=== PATIENT | male | born 1965 | race Caucasian/White ===

== ENCOUNTER → 2020-08-21 15:34 | Outpatient (CLI) | payer BC, SELFPAY ==
--- NOTE | 2020-08-21 | DI.RAD.S_ITS ---
PROCEDURE: XR FOOT LT MIN 3V INDICATIONS: LEFT AND RIGHT HAND JOINT PAIN LEFT GREATER TOE PAIN TECHNIQUE: 3 views of the foot were acquired. COMPARISON: None. FINDINGS: Bones: No fractures or dislocations. No suspicious bony lesions. Mild hallux valgus metatarsus prima varus alignment and medial bunion. Prominent posterior calcaneal enthesophyte. Soft tissues: No tibiotalar joint effusion. Achilles tendon appears normal. IMPRESSION: 1. Mild hallux valgus alignment and medial bunion. 2. Prominent posterior calcaneal enthesophyte. Dictated by: Jose Castaneda [facility] Interpreted: Vance Rubin MD on 08/21/2020 at 16:24 Approved by: Vance Rubin M.D. on 08/27/2020 at 13:14
--- NOTE | 2020-08-21 | DI.RAD.S_ITS ---
PROCEDURE: XR HAND LT MIN 3V INDICATIONS: LEFT AND RIGHT HAND JOINT PAIN LEFT GREATER TOE TECHNIQUE: 3 views of the hand(s) acquired. COMPARISON: None. FINDINGS: Bones: No acute fracture. Alignment: Mild radial curvature of the little finger. Other: Marginal lucency present in the middle finger PIP joint, as well as the distal pole the scaphoid and distal aspect of the ulna. 1st CMC and triscaphe joint degeneration. IMPRESSION: Osteoarthritis as above. Nonspecific lucencies involving the scaphoid distal ulna and 3rd MCP joint raising the possibility of erosions, versus cysts. Dictated by: Omi Juarez M.D. on 08/21/2020 at 16:19 Approved by: Omi Juarez M.D. on 08/21/2020 at 16:22
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
== END ==
PROVIDERS: Referring Provider Nurse Practitioner Family; Visit Provider Nurse Practitioner Family
DX: M79.675 Pain in left toe(s) (principal); M20.12 Hallux valgus (acquired), left foot; M21.612 Bunion of left foot; M77.32 Calcaneal spur, left foot; M25.541 Pain in joints of right hand; M25.542 Pain in joints of left hand; M19.032 Primary osteoarthritis, left wrist; M19.031 Primary osteoarthritis, right wrist; M18.12 Unilateral primary osteoarthritis of first carpometacarpal joint, left hand
CPT/HCPCS: 73130; 73630

== ENCOUNTER 2020-11-14 15:58 | Emergency (ER) | payer BC, SELFPAY ==
[2020-11-14 16:02] VITALS: BP 173/86; PULSE 82; RESP 18; O2SAT 98; BMI 29.8
--- NOTE | 2020-11-14 16:29 | DI.RAD.S_ITS ---
PROCEDURE: XR ELBOW LT MIN 3V INDICATIONS: pain and swelling TECHNIQUE: 3 views of the elbow were acquired. COMPARISON: None. FINDINGS: Bones: No fractures or dislocations. No suspicious bony lesions. Soft tissues: No elbow joint effusion. No suspicious soft tissue calcifications. IMPRESSION: Unremarkable left elbow radiographs Dictated by: Israel Archer M.D. on 11/14/2020 at 16:31 Approved by: Israel Archer M.D. on 11/14/2020 at 16:35
--- NOTE | 2020-11-14 17:12 | ED_ITS ---
HPI - Extremity Problem General Chief complaint: Extremity Problem,Nontraumatic Stated complaint: left elbow swollen Time Seen by Provider: 11/14/20 16:38 Mode of arrival: Ambulatory Limitations: no limitations History of Present Illness HPI Narrative: Patient is a 55-year-old male here for evaluation of left elbow pain and swelling. He has had issues with tendinitis in the past specifically in his right upper extremity but has also had his left upper extremity. 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 This morning he did lift his father. Afterwards he noticed some swelling to the outside of his left elbow that is warm to the touch in has discomfort. Related Data Previous Rx's Medication Instructions Recorded cephalexin 500 mg capsule 500 mg PO QID 5 Days #20 cap 11/14/20 Allergies Allergy/AdvReac Type Severity Reaction Status Date / Time No Known Drug Allergies Allergy Verified 11/14/20 16:07 Review of Systems Constitutional Constitutional: Reports system reviewed and no additional complaints, except as documented Musculoskeletal Musculoskeletal: Reports as per HPI and Denies tingling Integumentary/Breasts Skin/Breast: Denies rash Neurologic Neurologic: Denies tingling Hematologic/Lymphatic On Anticoagulants: No Patient History Medical History Elbow tendonitis Social History Smoking Status: Never smoker Smoking Status: Never smoker tobacco type: smokeless tobacco Substance Use Type: does not use Exam Initial Vital Signs Initial Vital Signs: Vital Signs Pulse Rate 82 11/14/20 16:02 Respiratory Rate 18 11/14/20 16:02 Blood Pressure 173/86 H 11/14/20 16:02 Pulse Oximetry 98 11/14/20 16:02 Const General: cooperative and healthy appearing HENTX Head: normal to inspection and normocephalic Cardio Pulses: radial pulses present on the left Skin General: no rashes or lesions noted Neuro General: patient alert, patient awake, patient oriented x3 and moves all extremities Extrem Other: Left shoulder is unremarkable, left wrist is unremarkable, left hands unremarkable, he has does report tenderness to the lateral epicondyle and also the medial epicondyle. He also has swelling just medial to the olecranon that is warm to the touch without any overlying erythema. Course Orders Ordered: ED Orders 11/14/20 16:29 XR elbow LT min 3V Stat Vital Signs Vital signs: Vital Signs - 8 hr 11/14/20 16:02 11/14/20 17:21 Pulse Rate 82 78 Respiratory Rate 18 Blood Pressure 173/86 H 140/63 Pulse Oximetry 98 100 MDM - Extremity (Nontraumatic) Imaging Data Extremity x-ray #1: Radiologist's Impression: [address] [id number] ReportSigned Patient: Max Hardy JR JMR#: [id number]: 1965Acct:[id number]/Sex: 55 / MDate of Service: 11/14/20Loc: EDAccession Number: [id number] Procedure: XR elbow LT min 3V Ordering Provider: Ruben Matamoros D.O. PROCEDURE: XR ELBOW LT MIN 3V INDICATIONS: pain and swelling TECHNIQUE: 3 views of the elbow were acquired. COMPARISON: None. FINDINGS: Bones: No fractures or dislocations. No suspicious bony lesions. Soft tissues: No elbow joint effusion. No suspicious soft tissue calcifications. IMPRESSION: Unremarkable left elbow radiographs Dictated by: Israel Archer M.D. on 11/14/2020 at 16:31 Approved by: Israel Archer M.D. on 11/14/2020 at 16:35 [facility] Narrative Medical decision making narrative: Patient does have physical exam that is most consistent with tendinitis/bursitis. It is somewhat warm over the area however there is no surrounding erythema. He is afebrile. X-ray is unremarkable. Considered a septic bursitis however I do not feel that his exam today is 100% consistent with this. The plan will be is for him to try conservative measures to include resting the area and anti-inflammatories and he denies. He was given a prescription for antibiotics that if he starts to notice some redness over the area over the next 48 hours he will start the antibiotics and will return if this continues to worsen. He expressed understanding agreement plan. Discharge Plan Departure Patient Disposition: Home Clinical Impression: Elbow tendonitis, Bursitis Instructions: DI for Tendinitis, DI for Elbow Bursitis Activity Restrictions/Additional Instructions: I recommend that you continue with anti-inflammatories also resting your elbow says much as possible using ice like we discussed. You were given a prescription for antibiotics. I would hold on this prescription for the next 48 hours if you start develop fevers or redness over the area start taking them as directed. If continues to worsen after that please return to the emergency department for further evaluation. Prescriptions: New cephalexin 500 mg capsule 500 mg PO QID 5 Days Qty: 20 RF: 0
[2020-11-14 17:21] VITALS: BP 140/63; PULSE 78; O2SAT 100
== END 2020-11-14 17:37 | disposition home or self-care (01) ==
PROVIDERS: Emergency Provider Emergency Medicine
DX: M77.8 Other enthesopathies, not elsewhere classified (principal); M70.32 Other bursitis of elbow, left elbow
CPT/HCPCS: 73080; 99283

== ENCOUNTER 2021-06-25 07:20 | Emergency (ER) | payer OTHER, BC, SELFPAY ==
[2021-06-25 07:30] VITALS: BP 180/106; PULSE 69; RESP 22; TEMP 37.1; O2SAT 96; BMI 30.3
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
[2021-06-25 09:24] VITALS: BP 149/87; PULSE 57; RESP 18; O2SAT 98
== END 2021-06-25 09:28 | disposition home or self-care (01) ==
PROVIDERS: Emergency Provider Emergency Medicine
DX: S39.012A Strain of muscle, fascia and tendon of lower back, initial encounter (principal); S29.012A Strain of muscle and tendon of back wall of thorax, initial encounter; V89.2XXA Person injured in unspecified motor-vehicle accident, traffic, initial encounter
CPT/HCPCS: 72040; 72070; 72100; 99283

== ENCOUNTER 2021-07-14 07:13 | Emergency (ER) | payer OTHER, SELFPAY ==
[2021-07-14 08:10] VITALS: BP 168/72; PULSE 72; RESP 18; TEMP 36.8; O2SAT 98; BMI 30.3
--- NOTE | 2021-07-14 08:42 | PC.NURSE ---
pt took off his shirt for assessment. his right pect is swollen and feels torn.
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
[2021-07-14 09:12] VITALS: BP 169/83; PULSE 60; RESP 18; O2SAT 95
== END 2021-07-14 09:13 | disposition home or self-care (01) ==
PROVIDERS: Emergency Provider Emergency Medicine
DX: S29.011A Strain of muscle and tendon of front wall of thorax, initial encounter (principal); X50.9XXA Other and unspecified overexertion or strenuous movements or postures, initial encounter; V89.2XXA Person injured in unspecified motor-vehicle accident, traffic, initial encounter
CPT/HCPCS: 99281

== ENCOUNTER → 2021-07-21 07:38 | Outpatient (CLI) | payer OTHER, SELFPAY ==
--- NOTE | 2021-07-21 07:39 | DI.MRI.S_ITS ---
PROCEDURE: MR SHOULDER RT WO CON INDICATIONS: Pain in right shoulder TECHNIQUE: Noncontrast oblique coronal T2 fast spin echo with fat saturation, oblique sagittal T1 spin echo and T2 fast spin echo with fat saturation, axial T1 spin echo and T2 fast spin echo with fat saturation through the shoulder. COMPARISON: None. FINDINGS: Image quality: Excellent. Rotator cuff: Tendinosis and low-grade bursal surface partial thickness tear involving distal supraspinatus at its insertion on the humeral head extending to musculotendinous junction is seen. Distal infraspinatus tendinosis is also noted. Distal subscapularis tendon is intact. No full-thickness rotator cuff tendon rupture. Sagittal images demonstrate no rotator cuff muscle atrophy. Bones and bursae: No bone marrow contusions or fractures. Mild to moderate acromioclavicular joint osteoarthritic changes are seen with downward osteophyte formation depressing the musculotendinous junction of supraspinatus. The acromion demonstrates conventional anatomy, without an os acromiale. No pathologic subacromial-subdeltoid or subcoracoid bursal fluid is present. Capsule and soft tissues: There is signal abnormality and contour irregularity involving superior anterior labrum at 12 to 1 o'clock position suggestive of superior anterior labral tear. The long head of the biceps tendinosis is seen. The rotator interval appears normal, without fibrosis. The coracohumeral ligament is normal in thickness. IMPRESSION: 1. Tendinosis and low-grade bursal surface partial-thickness tear involving distal supraspinatus extending to musculotendinous junction. Distal infraspinatus tendinosis. No full-thickness rotator cuff tendon rupture. 2. Mild to moderate acromioclavicular joint osteoarthritis. No fracture or dislocation. No significant subacromial subdeltoid bursal fluid. 3. Suggestion of superior anterior labral tear at 12 to 1 o'clock position. 4. Proximal intra-articular portion of long head of biceps tendinosis. Dictated by: Mitch Soares M.D. on 07/21/2021 at 8:55 Approved by: Mitch Soares M.D. on 07/21/2021 at 10:00
== END ==
PROVIDERS: Referring Provider Orthopaedic Surgery; Visit Provider Orthopaedic Surgery
DX: M75.111 Incomplete rotator cuff tear or rupture of right shoulder, not specified as traumatic (principal); M25.511 Pain in right shoulder
CPT/HCPCS: 73221

== ENCOUNTER → 2021-07-26 10:20 | Outpatient (CLI) | payer BC, SELFPAY ==
[2021-07-26 11:36] LABS: COVID19 -Nasal RAPID Negative (Negative)
== END ==
PROVIDERS: Visit Provider Nurse Practitioner Family
DX: Z20.822 Contact with and (suspected) exposure to COVID-19 (principal)
CPT/HCPCS: 87635; C9803

== ENCOUNTER 2021-07-28 13:14 | Day surgery (SDC) | payer OTHER, BC, SELFPAY ==
[2021-07-27 08:22] VITALS: BMI 30.9
[2021-07-28] VITALS (10 sets, daily range): BP systolic 145–168; BP diastolic 76–93; PULSE 59–81; RESP 12–15; TEMP 36.4–37.1; O2SAT 62–100; BMI 30.9
[2021-07-28] MEDS: LACTATED RINGERS 1,000 ML 42 ML IV (13:55)
--- NOTE | 2021-07-28 14:52 | PM.PREOP ---
Pre-operative Note COVID-19 COVID-19 status: Negative Result date/Date tested (Pos, Neg/Pending): 07/26/21 Interval Note History & Physical reviewed/Exam performed by Physician: Yes Changes to H&P: No
[2021-07-28] MEDS: CEFAZOLIN 2 GM/20 ML SYRINGE IV (15:48)
--- NOTE | 2021-07-28 16:02 | SUR.OPER ---
Supine on padded OR bed, head on pillow, left arm secured on padded arm boards at <90 degrees abduction, right arm free for surgery, legs uncrossed, safety belt at thigh, tape over blanket over lower legs.
[2021-07-28] MEDS: BUPIVACAINE 0.5% (PF) 30 ML, EPINEPHrine 0.15 MG INJ (16:10)
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
[2021-07-28] MEDS: HYDROMORPHONE 2 MG INJ IV (16:57)
[2021-07-28] MEDS: OXYCODONE/ACETAMINOPHEN 5/325 TABLET 1 TAB PO ×2 (17:07→17:54)
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
== END 2021-07-28 17:55 | disposition home or self-care (01) ==
PROVIDERS: Referring Provider Orthopaedic Surgery; Visit Provider Orthopaedic Surgery
PROC: (CPT 23455; principal; 2021-07-28 15:00)
DX: S29.011A Strain of muscle and tendon of front wall of thorax, initial encounter (principal); V49.40XA Driver injured in collision with unspecified motor vehicles in traffic accident, initial encounter
CPT/HCPCS: 24341; J0171; J0690; J1100; J1170; J2405; J3010

== ENCOUNTER → 2022-03-10 07:59 | Outpatient (CLI) | payer OTHER, SELFPAY ==
--- NOTE | 2022-03-10 | DI.MRI.S_ITS ---
PROCEDURE: MR KNEE LT WO CON INDICATIONS: Unspecified injury of left quadriceps muscle TECHNIQUE: Noncontrast sagittal PD fast spin echo and T2 fast spin echo with fat saturation, sagittal 3-D FLASH with fat saturation; coronal T1 spin echo and PD fast spin echo with fat saturation, and axial PD fast spin echo with fat saturation through the knee. COMPARISON: None. FINDINGS: Image quality: Excellent. Menisci: There is linear horizontal and vertically oriented high T2 signal intensity within the middle and peripheral 3rd of the posterior horn medial meniscus, demonstrating superior and inferior articular surface extension, indicating complex tearing. There is amorphous high signal intensity within the free edge of the lateral meniscal body, demonstrating superior and inferior articular surface extension, indicating radial tearing. Cruciate ligaments: The anterior and posterior cruciate ligaments appear intact. Medial structures: The medial collateral ligament appears intact. Visualized portions of the pes anserinus tendons appear normal. No abnormal bursal fluid. Lateral structures: The lateral collateral ligament, long and short heads of the biceps femoris tendon appear intact. The popliteus tendon appears normal. Iliotibial band appears normal. Anterior structures: There is moderate grade tearing of the medial aspect of the quadriceps tendon at the patellar insertion site. Patellar tendon is intact. Patellar alignment is normal. No femoral trochlear dysplasia or ventral trochlear prominence. No edema in the infrapatellar fat pad. Bones and cartilage: No bone marrow contusions or fractures. There is mild tricompartmental periarticular osteophyte formation. There is moderate cartilage loss diffusely overlying the weight-bearing aspects of the medial femoral condyle and medial tibial plateau. Articular cartilage fibrillation overlies the lateral patellar facet. Joint space: There is physiologic knee joint fluid. Trace Olivera's cyst. Normal appearing synovial plicae are incidentally noted. IMPRESSION: 1. Complex tearing of the medial meniscus. 2. Radial tearing of the free edge of the lateral meniscus. 3. Medial and patellofemoral compartment articular cartilage loss. 4. Knee joint effusion and Olivera's cyst. 5. Partial-thickness tearing of the quadriceps tendon. Dictated by: Frank Rodriguez M.D. on 03/10/2022 at 11:28 Approved by: Frank Rodriguez M.D. on 03/10/2022 at 11:30
--- NOTE | 2022-03-10 | DI.MRI.S_ITS ---
PROCEDURE: MR FEMUR LT WO CON INDICATIONS: Unspecified injury of left quadriceps muscle TECHNIQUE: Noncontrast coronal and sagittal T1 spin echo and STIR; axial T1 spin echo and T2 fast spin echo with fat saturation through the left thigh COMPARISON: None. FINDINGS: Image quality: Excellent. Imaging findings shows a full-thickness tear of the left quadriceps tendon at the musculotendinous junction with a gap of approximately 2 cm between fragments. Associated with this is a moderate size hematoma tracking along fascial planes. There is also increased signal present within the anterior thigh musculature most prominent within the patient's vastus lateralis consistent with edema and inflammation. Marrow signal visualized bones appears normal. I do not see significant degenerative change. No soft tissue mass is identified. IMPRESSION: 1. Full-thickness tear of the quadriceps tendon at the musculotendinous junction with approximately 2 cm of distraction between tendon fragments. 2. Moderate-sized hematoma present within the anterior thigh musculature tracking along fascial planes. 3. Mild to moderate increased intramuscular signal within the anterior thigh musculature most prominent in the vastus lateralis consistent with the acute injury and inflammation. Dictated by: Ruben Lloyd M.D. on 03/10/2022 at 13:34 Approved by: Ruben Lloyd M.D. on 03/10/2022 at 13:42
== END ==
PROVIDERS: Referring Provider Family Medicine; Visit Provider Family Medicine
DX: S83.232A Complex tear of medial meniscus, current injury, left knee, initial encounter (principal); S83.282A Other tear of lateral meniscus, current injury, left knee, initial encounter; S76.112A Strain of left quadriceps muscle, fascia and tendon, initial encounter; M25.462 Effusion, left knee; M71.22 Synovial cyst of popliteal space [Baker], left knee; X58.XXXA Exposure to other specified factors, initial encounter
CPT/HCPCS: 73718; 73721

== ENCOUNTER → 2022-03-16 07:44 | Outpatient (CLI) | payer OTHER, SELFPAY ==
--- NOTE | 2022-03-16 | DI.MRI.S_ITS ---
PROCEDURE: MR SHOULDER LT WO CON INDICATIONS: LEFT SHOULDER PAIN TECHNIQUE: Noncontrast oblique coronal T2 fast spin echo with fat saturation, oblique sagittal T1 spin echo and T2 fast spin echo with fat saturation, axial T1 spin echo and T2 fast spin echo with fat saturation through the shoulder. COMPARISON: [facility], MR, MR SHOULDER RT WO CON, 07/21/2021, 7:49. FINDINGS: Image quality: Excellent. Rotator cuff: Low to moderate grade articular and bursal surface partial thickness tear involving distal supraspinatus at its insertion on the humeral head is seen extending to musculotendinous junction. Distal infraspinatus tendinosis is noted. Intrasubstance partial-thickness tear involving distal subscapularis tendon is seen. No full-thickness rotator cuff tendon rupture. Sagittal images demonstrate no significant muscle atrophy. Bones and bursae: Moderate acromioclavicular joint osteoarthritic changes are seen with joint space narrowing, subchondral sclerosis and edema and downward osteophyte formation depressing the musculotendinous junction of supraspinatus. No fracture or dislocation.. Moderate amount of joint effusion and subacromial subdeltoid bursal fluid is seen. Capsule and soft tissues: Signal abnormality and contour irregularity involving superior anterior labrum at 12 to 2 o'clock position is seen suggestive of superior anterior labral tear. The long head of the biceps tendon appears thickened intra-articularly with intrasubstance T2 hyperintense signal. The rotator interval appears normal, without fibrosis. The coracohumeral ligament is normal in thickness. IMPRESSION: 1. Low to moderate grade articular and bursal surface partial thickness tear involving distal supraspinatus extending to musculotendinous junction. Distal infraspinatus tendinosis. Low-grade intrasubstance partial-thickness tear involving distal subscapularis. No full-thickness rotator cuff tendon rupture. No muscle atrophy. 2. Moderate acromioclavicular joint osteoarthritis. No fracture or dislocation. Moderate amount of joint effusion and subacromial subdeltoid bursal fluid. No gross loose bodies. 3. Suggestion of superior anterior labral tear at 12 to 2 o'clock position. 4. Proximal intra-articular portion of long head of biceps tendinosis and low-grade intrasubstance partial-thickness tear. Dictated by: Mitch Soares M.D. on 03/16/2022 at 10:30 Approved by: Mitch Soares M.D. on 03/16/2022 at 11:14
== END ==
PROVIDERS: Referring Provider Orthopaedic Surgery; Visit Provider Orthopaedic Surgery
DX: S46.012A Strain of muscle(s) and tendon(s) of the rotator cuff of left shoulder, initial encounter (principal); S46.112A Strain of muscle, fascia and tendon of long head of biceps, left arm, initial encounter; M19.012 Primary osteoarthritis, left shoulder; M25.412 Effusion, left shoulder; X58.XXXA Exposure to other specified factors, initial encounter
CPT/HCPCS: 73221

== ENCOUNTER → 2022-12-06 10:17 | Outpatient (CLI) | payer OTHER, SELFPAY ==
--- NOTE | 2022-12-06 | DI.RAD.S_ITS ---
PROCEDURE: FL SHOULDER INJECTION MR/CT LT INDICATIONS: LEFT SHOULDER PAIN COMPARISON: None. TECHNIQUE: The indications, alternatives, benefits, risks, and complications of the procedure were explained to the patient. Written informed consent was obtained and placed in the chart. The shoulder was examined fluoroscopically and a site for needle placement chosen for entry into the glenohumeral joint from an anterior approach. The skin was prepped and draped in a sterile fashion, and 1% lidocaine infiltrated from skin down to joint capsule. A spinal needle was inserted into the glenohumeral joint, and a small amount of iodinated contrast media injected to confirm intra-articular placement of the needle tip. This was followed by approximately 12 mL dilute solution of a gadolinium containing MR contrast agent. The needle was removed and a dressing was applied. The patient was given postprocedural instructions and sent to the MR suite for MR imaging. FINDINGS: A single fluoroscopic spot image demonstrates intra-articular location of injected iodinated contrast. IMPRESSION: Successful fluoroscopically guided administration of dilute Gadolinium solution into the shoulder joint for MR arthrogram. Dictated by: Mitch Soares M.D. on 12/06/2022 at 13:49 Approved by: Mitch Soares M.D. on 12/06/2022 at 13:49
--- NOTE | 2022-12-06 | DI.MRI.S_ITS ---
PROCEDURE: MR SHOULDER LT W CON INDICATIONS: LEFT SHOULDER PAIN TECHNIQUE: After the administration of 12 mL of dilute intra-articular Gadolinium contrast, oblique coronal T1 and T2 spin echo with fat saturation, oblique sagittal T1 spin echo with and without fat saturation, oblique sagittal T2 fast spin echo with fat saturation, axial T1 spin echo with fat saturation through the shoulder. COMPARISON: [facility], RF, FL SHOULDER INJECTION MR/CT LT, 12/06/2022, 10:54. [facility], MR, MR SHOULDER LT WO CON, 03/16/2022, 8:05. FINDINGS: Image quality: Excellent. Rotator cuff: Low-grade articular and bursal surface partial thickness tear involving distal supraspinatus at its insertion on the humeral head is seen extending to musculotendinous junction. Low-grade articular surface partial-thickness tear involving distal infraspinatus at its insertion on the humeral head is also noted. Distal subscapularis tendinosis and low-grade intrasubstance partial-thickness tear is seen. No full-thickness rotator cuff tendon rupture. No rotator cuff muscle atrophy on sagittal images. Bones and bursae: Likely postsurgical changes are seen in anterior aspect of humeral head. No gross marrow edema. No acute fracture or dislocation. There is also likely postsurgical widening of acromioclavicular joint. No marrow edema. No suspicious bony lesions. Capsule and soft tissues: There is contrast extension and contour irregularity involving superior anterior labrum at 12-1 o'clock positions consistent with superior anterior labral tear. The glenohumeral ligaments appear intact. The long head of the biceps tendon demonstrates normal location and morphology. The rotator interval appears normal, without fibrosis. The coracohumeral ligament is of normal thickness. No intra-articular bodies. IMPRESSION: 1. Suggestion of superior anterior labral tear at 12 to 1 o'clock position. 2. Postsurgical changes in anterior aspect of humeral head. Postsurgical widening of acromioclavicular joint. No marrow edema. No fracture or dislocation. No gross intra-articular loose bodies. 3. Low-grade articular and bursal surface partial thickness tear involving distal supraspinatus extending to musculotendinous junction. Low-grade articular surface partial-thickness tear involving distal infraspinatus. Low-grade intrasubstance partial-thickness tear involving distal subscapularis. No full-thickness rotator cuff tendon rupture. No significant rotator cuff muscle atrophy. Dictated by: Mitch Soares M.D. on 12/06/2022 at 12:53 Approved by: Mitch Soares M.D. on 12/06/2022 at 13:01
[2022-12-07] MEDS: LIDOCAINE 1% MDV 30 ML INJ (07:20)
== END ==
PROVIDERS: Referring Provider Orthopaedic Surgery; Visit Provider Orthopaedic Surgery
DX: S46.012A Strain of muscle(s) and tendon(s) of the rotator cuff of left shoulder, initial encounter (principal); X58.XXXA Exposure to other specified factors, initial encounter
CPT/HCPCS: 23350; 73222; A9270

== ENCOUNTER → 2023-07-27 10:41 | Outpatient (CLI) | payer OTHER, SELFPAY ==
--- NOTE | 2023-07-27 10:43 | DI.MRI.S_ITS ---
PROCEDURE: MR FEMUR LT WO CON INDICATIONS: Strain of left quadriceps muscle TECHNIQUE: Noncontrast coronal and sagittal T1 spin echo and STIR; axial T1 spin echo and T2 fast spin echo with fat saturation through the left thigh. COMPARISON: [facility], MR, MR FEMUR LT WO CON, 03/10/2022, 8:34. FINDINGS: Image quality: Excellent. Bones: There is no marrow edema. No fracture or dislocation. No evidence of avascular necrosis of femoral head. Mild bilateral hip joint osteoarthritic changes are seen. Mild tricompartmental osteoarthritis in left knee is also seen. No suspicious bony lesion. Soft tissues: The scanned muscles demonstrate normal overall bulk and internal signal. Mildly thickened distal quadriceps tendon at its superior patellar insertion is seen. Included portion of patellar tendon is intact. There is no soft tissue mass or drainable fluid collection. No abnormally enlarged lymph nodes are seen. No significant left knee joint effusion. IMPRESSION: 1. Mild left hip and left knee joint osteoarthritis. No marrow edema. No fracture or dislocation. No evidence of avascular necrosis. 2. There is interval repair of previously noted ruptured distal quadriceps tendon with mildly thickened tendon which may indicate tendinosis versus postsurgical changes. No recurrent rupture. No muscle signal abnormality is seen within left thigh. Dictated by: Mitch Soares M.D. on 07/27/2023 at 14:15 Approved by: Mitch Soares M.D. on 07/27/2023 at 14:20
== END ==
PROVIDERS: Referring Provider Orthopaedic Surgery Adult Reconstructive Orthopaedic Surgery; Visit Provider Orthopaedic Surgery Adult Reconstructive Orthopaedic Surgery
DX: S76.112S Strain of left quadriceps muscle, fascia and tendon, sequela (principal); M17.12 Unilateral primary osteoarthritis, left knee; M16.12 Unilateral primary osteoarthritis, left hip; X58.XXXS Exposure to other specified factors, sequela
CPT/HCPCS: 73718

== ENCOUNTER → 2023-09-15 07:03 | Outpatient (CLI) | payer BC, SELFPAY ==
--- NOTE | 2023-09-15 07:04 | DI.MRI.S_ITS ---
PROCEDURE: MR SHOULDER RT WO CON INDICATIONS: Pain in right shoulder TECHNIQUE: Noncontrast oblique coronal T2 fast spin echo with fat saturation, oblique sagittal T1 spin echo and T2 fast spin echo with fat saturation, axial T1 spin echo and T2 fast spin echo with fat saturation through the shoulder. COMPARISON: [facility], MR, MR SHOULDER LT WO CON, 03/16/2022, 8:05. FINDINGS: Image quality: Excellent. Rotator cuff: Moderate grade articular and bursal surface partial thickness tear involving distal supraspinatus at its insertion on the humeral head is seen extending to musculotendinous junction. Low-grade articular surface partial-thickness tear involving distal infraspinatus at its insertion on the humeral head is seen. Low-grade intrasubstance partial-thickness tear involving distal subscapularis is also noted. No full-thickness rotator cuff tendon rupture. Sagittal images demonstrate no significant rotator cuff muscle atrophy. Bones and bursae: No bone marrow contusions or fractures. Moderate acromioclavicular joint osteoarthritic changes are seen with joint space narrowing and downward osteophyte formation depressing the musculotendinous junction of supraspinatus. Mild to moderate glenohumeral joint osteoarthritic changes also noted. There is small amount of joint effusion and subacromial subdeltoid bursal fluid, low-grade bursitis cannot be excluded. Capsule and soft tissues: Fraying of superior anterior labrum with T2 hyperintense signal at 12 to 2 o'clock position suggestive of superior anterior labral tear. The long head of the biceps tendon appears thickened with intrasubstance T2 hyperintense signal at the level of greater tuberosity. The rotator interval appears normal, without fibrosis. The coracohumeral ligament is normal in thickness. The inferior glenohumeral ligament is mildly thickened. IMPRESSION: 1. Moderate grade articular and bursal surface partial thickness tear involving distal supraspinatus extending to musculotendinous junction. Low-grade articular surface partial-thickness tear involving distal infraspinatus. Low-grade intrasubstance partial-thickness tear involving distal subscapularis. No full-thickness rotator cuff tendon rupture. No significant rotator cuff muscle atrophy. 2. Moderate acromioclavicular joint osteoarthritis and [id number] glenohumeral joint osteoarthritis. No fracture or dislocation. Small amount of joint effusion and subacromial subdeltoid bursal fluid, low-grade bursitis cannot be excluded. No loose bodies. 3. Suggestion of superior anterior labral tear at 12 to 2 o'clock position. 4. Low-grade intrasubstance partial-thickness tear involving proximal long head of biceps tendon at the level of humeral head. 5. Mildly thickened inferior glenohumeral ligament which can be seen associated with early stages of is decent capsulitis suggest clinical correlation. Dictated by: Mitch Soares M.D. on 09/15/2023 at 8:54 Approved by: Mitch Soares M.D. on 09/15/2023 at 8:59
== END ==
LOC: MRI 07:03
PROVIDERS: Referring Provider Orthopaedic Surgery; Visit Provider Orthopaedic Surgery
DX: M75.111 Incomplete rotator cuff tear or rupture of right shoulder, not specified as traumatic (principal); S46.111A Strain of muscle, fascia and tendon of long head of biceps, right arm, initial encounter; M19.011 Primary osteoarthritis, right shoulder; M25.511 Pain in right shoulder
CPT/HCPCS: 73221

== ENCOUNTER → 2023-10-08 10:30 | Outpatient (CLI) | payer BC, SELFPAY ==
--- NOTE | 2023-10-08 | DI.CT.S_ITS ---
PROCEDURE: CT ABDOMEN PELVIS W CON INDICATIONS: Pain TECHNIQUE: After the administration of intravenous contrast, axial sections acquired from the lung bases to the pubic symphysis. Coronal and sagittal reformats were performed. For radiation dose reduction, the following was used: automated exposure control, adjustment of mA and/or kV according to patient size. COMPARISON: None. FINDINGS: Image quality: Diagnostic. Lower Chest: No suspicious pulmonary nodule or consolidation. Dependent atelectasis. No hiatal hernia. ABDOMEN: Liver: No solid mass. Multiple subcentimeter hypodensities in the left hepatic lobe are too small to characterize (2/16, 18, 19, 20). Gallbladder: No radiopaque gallstones or wall thickening. Biliary ducts: No biliary dilation. Pancreas: No ductal dilation. Spleen: Size is within normal limits. Adrenal Glands: No adrenal nodules. Kidneys and Ureters: No hydronephrosis. No solid mass. No complex renal cystic lesion which requires follow up. Stomach and Bowel: Normal colonic caliber, without significant wall thickening. Scattered colonic diverticuli, without diverticulitis, notably in the sigmoid colon. Normal appendix (2/59). Peritoneum: No abnormal intraperitoneal fluid. No free air. Ventral Wall: Diastasis recti. Umbilical hernia containing fat and a knuckle nondilated small bowel with neck measuring 2.3 cm (2/63). Abdominal Nodes: No retroperitoneal or mesenteric adenopathy by size criteria. Vessels: Aorta and inferior vena cava are normal in size. Patent portal, splenic and bilateral renal veins. PELVIS: Pelvic Organs: Unremarkable. Bladder: No bladder wall thickening, accounting for underdistention. Pelvic Nodes: No enlarged lymph nodes. Miscellaneous: No inguinal hernias are seen. Bones: No aggressive osseous abnormality. No acute fractures. Grade 1 anterolisthesis of L5 on S1 with bilateral pars defects and moderate degenerative changes. Remainder of the spine demonstrates mild multilevel degenerative changes. IMPRESSION: 1. No acute pathology in the abdomen or pelvis. Nonobstructive bowel with a few scattered colonic diverticuli without diverticulitis. 2. Diastasis recti with a small umbilical hernia containing fat and a knuckle of the nonobstructive small bowel. 3. L5-S1 bilateral pars defects with grade 1 anterolisthesis and moderate degenerative changes. Dictated by: Erin Long M.D. on 10/08/2023 at 19:59 Approved by: Erin Long M.D. on 10/08/2023 at 20:04
== END ==
LOC: CT 10:31
PROVIDERS: Referring Provider Physician Assistant Medical; Visit Provider Physician Assistant Medical
DX: M62.08 Separation of muscle (nontraumatic), other site (principal); K57.90 Diverticulosis of intestine, part unspecified, without perforation or abscess without bleeding; K42.9 Umbilical hernia without obstruction or gangrene; M43.17 Spondylolisthesis, lumbosacral region; M47.817 Spondylosis without myelopathy or radiculopathy, lumbosacral region; M47.816 Spondylosis without myelopathy or radiculopathy, lumbar region
CPT/HCPCS: 74177; Q9967

== ENCOUNTER 2023-11-08 09:48 | Day surgery (SDC) | payer BC, SELFPAY ==
[2023-10-27 15:18] VITALS: BMI 31.6
--- NOTE | 2023-11-07 08:34 | PM.PREOP ---
Pre-operative Note Interval Note History & Physical reviewed/Exam performed by Physician: Yes Changes to H&P: No
[2023-11-08 10:17] VITALS: BMI 31.6
[2023-11-08 10:25] VITALS: BP 150/83; PULSE 61; RESP 18; TEMP 36.8; O2SAT 95
[2023-11-08] MEDS: LACTATED RINGERS 1,000 ML 42 ML IV (10:44)
[2023-11-08] MEDS: ACETAMINOPHEN 325 MG TABLET 975 MG PO (10:44)
[2023-11-08] MEDS: CEFAZOLIN 2 GM/100 ML PREMIX 100 ML IV (11:13)
--- NOTE | 2023-11-08 11:27 | SUR.OPER ---
Supine on padded OR bed, head on pillow, arms secured on padded arm boards at <90 degrees abduction, legs uncrossed, safety belt at thigh, tape over blanket over lower legs.
[2023-11-08] MEDS: BUPIVACAINE 0.25% (PF) VIAL 30 ML INJ (11:36)
[2023-11-08] MEDS: BUPIVACAINE LIPOSOME 266 MG/20 ML VIAL INJ (12:00)
[2023-11-08] MEDS: BUPIVACAINE 0.25% (PF) VIAL 20 ML INJ (12:01)
[2023-11-08 12:45] VITALS: BP 125/72; PULSE 59; RESP 16; TEMP 36.1; O2SAT 96
--- NOTE | 2023-11-08 12:49 | SUR.PHASEI ---
Received to [facility] after general anesthesia. Oral airway in place. No further airway support required. Report from DEE DEE Mondragon and Dr Roman.
[2023-11-08 12:50] VITALS: BP 125/72; PULSE 60; RESP 14; O2SAT 95
--- NOTE | 2023-11-08 12:54 | SUR.PHASEI ---
1249 - Oral airway out without further assisatance. Left knee brace applied per pts preop request.
[2023-11-08 12:55] VITALS: BP 117/70; BP 128/64; PULSE 52; PULSE 53; RESP 11; RESP 12; O2SAT 95; O2SAT 97
[2023-11-08 13:00] VITALS: BP 116/54; PULSE 51; RESP 10; TEMP 36.2; O2SAT 95
[2023-11-08 13:02] VITALS: BP 126/71; PULSE 54; RESP 12; TEMP 36.2; O2SAT 95
[2023-11-08] MEDS: ONDANSETRON 4 MG/2 ML INJ IV (13:05)
[2023-11-08] MEDS: OXYCODONE IR 5 MG TABLET PO (13:05)
[2023-11-08] MEDS: hydrOXYzine 50 MG/ML INJ IM (13:05)
[2023-11-08] MEDS: METOCLOPRAMIDE 10 MG/2 ML INJ IV (13:05)
--- NOTE | 2023-11-08 16:02 | PM.OP.1 ---
Operative Date/Time/Diagnoses Date of procedure: 11/08/23 Time of procedure: 16:03 Pre-op diagnosis: umbilical hernia Post-op diagnosis: same Procedure & Clinicians Procedure: open repair of umbilical hernia Same procedure as scheduled: Yes Indications: 58M with a symptomatic bowel containing umbilical hernia Surgeon: Jeremy Avelar Customer Service Correspondence Clerk: Israel Vazquez Anesthesia Type: General Operative Notes Findings: periumbilical hernia bowel containing component of diastasis recti superior to the umbilicus Specimen(s): none sent Estimated Blood Loss (mL): 20 Procedure in detail: Patient was brought to the operating room placed supine on the table. Bilateral lower extremity compression devices were applied. They received 2 g of Ancef prior to skin incision. Prepped and draped in sterile fashion. Time-out was performed. A small midline incision was made above the umbilicus. The subcutaneous tissue was divided to expose the midline fascia. The fascia was grasped elevated and sharply opened. We identified a periumbilcal hernia extending from the umbilicus superiorly by several cm. The is notable rectus diastasis extending superiorly to the level of the xiphoid but withoutfurther midline fascial defect. A towel was then placed over the visceral content to protect it out of harms way. Hernia sac was excised. The retromuscular space was entered by incising the posterior rectus sheath approximately 1 cm from its edge. The retromuscular plane was developed using electrocautery with care to protect the neurovascular structures. The retrorectus space was developed in the same fashion on the contralateral side. The spaces were then connected superiorly and inferiorly. The posterior sheath was then closed with 1 PDS. I selected a Bard 10 cm polypropelene soft tissue mesh placed in the retro rectus space. The mesh was anchored with Tiseal such that the mesh lay under physiologic tension. The anterior sheath was then closed with a running 1. PDS without tension. Hemostasis was checked. The subcutaneous tissue was then reapproximated using Vicryl skin closed with running 4-0 Monocryl followed by the application of Dermabond. Patient emerged from anesthesia was extubated and transferred to recovery room in stable condition. Complications: none Post-operative Condition: stable Disposition: same day surgery
== END 2023-11-08 13:45 | disposition home or self-care (01) ==
PROVIDERS: PCP Physician Assistant Medical; Referring Provider Surgery; Visit Provider Surgery
PROC: (CPT 49593; principal; 2023-11-08 11:15)
DX: K42.9 Umbilical hernia without obstruction or gangrene (principal)
CPT/HCPCS: 49593; C1781; C9290; J0690; J1100; J1885; J2405; J2704; J2765; J3010; J3410; J3490

== ENCOUNTER → 2024-04-11 07:22 | Outpatient (CLI) | payer OTHER, SELFPAY ==
--- NOTE | 2024-04-11 07:23 | DI.MRI.S_ITS ---
PROCEDURE: MR KNEE LT WO CON INDICATIONS: COMPLEX TEAR OF MEDIAL MENISCUS LT KNEE TECHNIQUE: Noncontrast sagittal PD fast spin echo and T2 fast spin echo with fat saturation, sagittal 3-D FLASH with fat saturation; coronal T1 spin echo and PD fast spin echo with fat saturation, and axial PD fast spin echo with fat saturation through the knee. COMPARISON: [facility], MR, MR KNEE LT WO CON, 03/10/2022, 8:08. FINDINGS: Image quality: Excellent. Menisci: Status post posterior horn medial meniscal repair. Residual vertically oriented linear high T2 signal intensity traverses the peripheral 3rd of the posterior horn medial meniscus, demonstrating superior and inferior articular surface extension. Previously seen truncation of the lateral meniscal free edge is no longer appreciated. Cruciate ligaments: The anterior and posterior cruciate ligaments appear intact. Medial structures: The medial collateral ligament appears intact. Visualized portions of the pes anserinus tendons appear normal. No abnormal bursal fluid. Lateral structures: The lateral collateral ligament, long and short heads of the biceps femoris tendon appear intact. The popliteus tendon appears normal. Iliotibial band appears normal. Anterior structures: The quadriceps and patellar tendons appear intact. Patellar alignment is normal. No femoral trochlear dysplasia or ventral trochlear prominence. No edema in the infrapatellar fat pad. Bones and cartilage: No bone marrow contusions or fractures. Moderate articular cartilage loss overlies the weight-bearing aspects of the medial femoral condyle and medial tibial plateau. Articular cartilage fibrillation overlying the lateral patellar facet. Joint space: There is physiologic knee joint fluid. No Olivera's cyst. Normal appearing synovial plicae are incidentally noted. IMPRESSION: 1. Postsurgical sequelae. 2. Residual vertically oriented high T2 signal intensity within the posterior horn medial meniscus, which could represent persistent/recurrent tearing. MRI arthrography may be helpful for further assessment. 3. Medial and patellofemoral compartment articular cartilage loss. Dictated by: Frank Rodriguez M.D. on 04/11/2024 at 9:50 Approved by: Frank Rodriguez M.D. on 04/11/2024 at 9:54
== END ==
LOC: MRI 07:22
PROVIDERS: PCP Physician Assistant Medical; Referring Provider Orthopaedic Surgery; Visit Provider Orthopaedic Surgery
DX: S83.232A Complex tear of medial meniscus, current injury, left knee, initial encounter (principal); X58.XXXA Exposure to other specified factors, initial encounter; Z98.890 Other specified postprocedural states
CPT/HCPCS: 73721

== ENCOUNTER → 2024-06-03 11:54 | Outpatient (CLI) | payer OTHER, SELFPAY ==
--- NOTE | 2024-06-03 11:56 | DI.RAD.S_ITS ---
PROCEDURE: FL ARTHROGRAM KNEE LT INDICATIONS: TEAR COMPARISON: None. TECHNIQUE: The indications, alternatives, benefits, risks, and complications of the procedure were explained to the patient. Written informed consent was obtained and placed in the chart. The knee was examined fluoroscopically, and a site chosen for knee joint injection. The skin was prepped and draped in a sterile fashion, and 1% Lidocaine infiltrated from the skin down to the articular surface. A hypodermic needle was then introduced into the joint and iodinated contrast media was instilled to confirm the intra-articular needle tip placement. This was followed by approximately 50 mL dilute solution of a gadolinium containing MR contrast agent. The needle was removed and a bandage was applied. An Win wrap was then applied around the knee joint to keep the contrast from collecting in the suprapatellar recess. The patient experienced no complications throughout the procedure and left the fluoroscopic suite in no apparent distress. FINDINGS: Single fluoroscopic spot image demonstrates intra-articular location to injected iodinated contrast. IMPRESSION: Successful fluoroscopically guided administration of dilute Gadolinium solution into the knee joint for MR arthrogram. Dictated by: Shorty Squires M.D. on 06/03/2024 at 14:21 Approved by: Shorty Squires M.D. on 06/03/2024 at 14:21
--- NOTE | 2024-06-03 13:18 | DI.MRI.S_ITS ---
PROCEDURE: MR KNEE LT W CON INDICATIONS: Left knee pain TECHNIQUE: After the administration of 50 mL of dilute intra-articular Gadolinium contrast, sagittal T1 spin echo with fat saturation and PD fast spin echo with fat saturation, coronal T1 spin echo with and without fat saturation, coronal T2 fast spin echo with fat saturation, axial PD fast spin echo with fat saturation through the knee. COMPARISON: [facility], MR, MR KNEE LT WO CON, 04/11/2024, 7:46. FINDINGS: Image quality: Excellent. Menisci: Postsurgical changes are noted in posterior horn medial meniscus near its posterior meniscal root insertion. Signal abnormality involving posterior horn of medial meniscus extending to inferior articulating surface with contrast extension suggestive of recurrent tear. The lateral meniscus is intact. Cruciate ligaments: The anterior and posterior cruciate ligaments appear intact. Medial structures: The medial collateral ligament appears intact. Visualized portions of the pes anserinus tendons appear normal. No abnormal bursal fluid. Lateral structures: The lateral collateral ligament, long and short heads of the biceps femoris tendon appear intact. The popliteus tendon appears normal. Iliotibial band appears normal. Anterior structures: The quadriceps and patellar tendons appear intact. Patellar alignment is normal. No femoral trochlear dysplasia or ventral trochlear prominence. No edema in the infrapatellar fat pad. Bone and cartilage: No bone marrow contusions or fractures. Low-grade chondromalacia in medial femoral tibial compartment is seen. Articulating cartilage in lateral femoral tibial compartment is normal in thickness. Low-grade chondromalacia involving apex of patella cartilage. Joint space: No Olivera's cyst. Normal appearing synovial plicae are incidentally noted. No intra-articular bodies. IMPRESSION: 1. Postsurgical changes in posterior horn medial meniscus. Suggestion of recurrent tear involving posterior horn remanent of medial meniscus extending to inferior articulating surface. The lateral meniscus is intact. 2. The cruciate ligaments are intact. Medial and lateral collateral ligaments are within normal limits. 3. Low-grade chondromalacia in medial femoral tibial compartment. Focal low to moderate grade chondromalacia is also seen involving lateral facet of patella cartilage near apex. No marrow edema. No fracture or dislocation. No popliteal cyst or intra-articular loose bodies. Dictated by: Mitch Soares M.D. on 06/03/2024 at 14:57 Approved by: Mitch Soares M.D. on 06/03/2024 at 15:06
[2024-06-03] MEDS: SODIUM CHLORIDE 0.9 % 20 ML VIAL IV ×2 (13:22)
[2024-06-03] MEDS: LIDOCAINE 1% 20 ML INJ (13:22)
== END ==
PROVIDERS: PCP Physician Assistant Medical; Referring Provider Orthopaedic Surgery Sports Medicine; Visit Provider Orthopaedic Surgery Sports Medicine
DX: M25.562 Pain in left knee (principal); M71.552 Other bursitis, not elsewhere classified, left hip; M22.42 Chondromalacia patellae, left knee; Z98.890 Other specified postprocedural states
CPT/HCPCS: 27369; 73580; 73722; A9579; Q9967

== ENCOUNTER → 2024-10-23 13:56 | Outpatient (CLI) | payer OTHER, SELFPAY ==
--- NOTE | 2024-10-23 14:06 | DI.MRI.S_ITS ---
PROCEDURE: MR KNEE LT WO CON INDICATIONS: lt KNEE PAIN TECHNIQUE: Noncontrast sagittal PD fast spin echo and T2 fast spin echo with fat saturation, sagittal 3-D FLASH with fat saturation; coronal T1 spin echo and PD fast spin echo with fat saturation, and axial PD fast spin echo with fat saturation through the knee. COMPARISON: [facility], MR, MR KNEE LT W CON, 06/03/2024, 13:15. [facility], MR, MR KNEE LT WO CON, 03/10/2022, 8:08. [facility], MR, MR KNEE LT WO CON, 04/11/2024, 7:46. FINDINGS: Image quality: Excellent. Anterior cruciate ligament: Intact. Posterior cruciate ligament: Intact. Medial collateral ligament: Medial collateral ligament appears mildly thickened throughout without definite discontinuity of fibers or surrounding edema. Lateral collateral ligament: Intact. Medial meniscus: Postsurgical changes again seen from prior fixation at the posterior root attachment of the medial meniscus. Mild intermediate signal is seen in the posterior horn and body of the medial meniscus that may be related to fibrovascular granulation tissue or recurrent tearing, less prominent when compared to the MR arthrogram from 06/03/2024. No meniscal extrusion. Lateral meniscus: Mild free edge fibrillation at the body of the lateral meniscus without significant tearing. Medial and lateral tendons: Heterogeneity of the distal sartorius and gracilis muscles near their insertions adjacent to the surgical site could indicate partial tearing. Semitendinosis tendon appears grossly intact although the insertion is below the field of view of the exam. The semimembranosus tendon insertions appear intact. The popliteus tendon is intact. Iliotibial band appears normal. Anterior structures: The quadriceps and patellar tendons appear intact. Mildly shallow trochlear groove with lateral patellar tilting but no significant subluxation. No edema in the infrapatellar fat pad. Bones: No bone marrow contusions or fractures. Medial femorotibial cartilage: Mild partial-thickness cartilage thinning in the weight-bearing portion of the medial femorotibial compartment without a focal defect. Lateral femorotibial cartilage: No focal cartilage defect. Patellofemoral cartilage: Mild surface cartilage irregularity at the median ridge/lateral facet of the patella and at the trochlear groove. Soft tissues: Skin marker is seen at the inferior margin of the field of view of the exam and the surrounding area is suboptimally evaluated. The marker is at the location of the prior fixation hardware, which appears to have been removed. The adjacent distal pes anserinus tendons, specifically the distal sartorius and gracilis tendons, appear heterogeneous and partial tearing is not excluded. Small joint effusion. Trace medial popliteal cyst. The musculature surrounding the knee is normal in bulk. IMPRESSION: 1. Interval removal of fixation device at the anterior medial aspect of the tibia, at the margins of the field of view of this exam. There is heterogeneity of the adjacent sartorius and gracilis tendons that could indicate partial tearing. 2. Postsurgical changes at the medial meniscus. Intermediate signal at the posterior horn and body is less specific in the postsurgical setting and may represent fibrovascular granulation tissue or recurrent tearing, less prominent when compared to the MR arthrogram from 06/03/2024. 3. Mild free edge fibrillation at the body of the lateral meniscus without significant tearing. 4. Remote prior low-grade sprain of the medial collateral ligament. 5. 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 6. Small joint effusion. Approved by: Vance Garcia M.D. on 10/25/2024 at 15:45
== END ==
PROVIDERS: PCP Physician Assistant Medical; Referring Provider Emergency Medicine; Visit Provider Emergency Medicine
DX: S76.112A Strain of left quadriceps muscle, fascia and tendon, initial encounter (principal); S83.412A Sprain of medial collateral ligament of left knee, initial encounter; M22.42 Chondromalacia patellae, left knee; M25.462 Effusion, left knee; X58.XXXA Exposure to other specified factors, initial encounter
CPT/HCPCS: 73721